=== PATIENT | male | born 1960 | race Caucasian/White ===

== ENCOUNTER 2021-06-13 22:20 | Emergency (ER) | payer OTHER, BC ==
[2021-06-14] MEDS ORDERED: Bacitracin Oint 1 GM U/D Packet TOP ONE (01:41)
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
== END 2021-06-14 01:57 | disposition home or self-care (01) ==
LOC: JP.ED 22:20
DX: S20.219A Contusion of unspecified front wall of thorax, initial encounter (principal); S60.512A Abrasion of left hand, initial encounter; S60.511A Abrasion of right hand, initial encounter; E11.9 Type 2 diabetes mellitus without complications; Z72.0 Tobacco use; Z86.16 Personal history of COVID-19; Z88.8 Allergy status to other drugs, medicaments and biological substances; Z88.1 Allergy status to other antibiotic agents; Z79.82 Long term (current) use of aspirin; Z79.84 Long term (current) use of oral hypoglycemic drugs; Z79.899 Other long term (current) drug therapy; V43.52XA Car driver injured in collision with other type car in traffic accident, initial encounter; Y92.410 Unspecified street and highway as the place of occurrence of the external cause
CPT/HCPCS: 36415; 80053; 82947; 85025; 99284